=== PATIENT | female | born 1940 | race Caucasian/White ===

== ENCOUNTER → 2020-01-12 | Outpatient (CLI) | payer MEDICARE ==
[~2020-01-12] MED LIST: ALPR0.5T5 PO; APIX5TAB PO; CALC400T5 PO; CARV3.122 PO; CITA20TA6 PO; DAPT500V6 IV; DIPH25TA24 PO; DOCU-131 PO; DOXY100T PO; FAMO10TA77 PO; FERR325T18 PO; FURO20TA3 PO; GABA600T7 PO; GLIP10TA13 PO; HYDR-3241 PO; HYDR-3341 PO; MERO1VIA15 IV; NYST1000 PO; OXYB5TAB10 PO; OXYC5CAP2 PO; POLY17PO5 PO; TRAZ-175 PO
== END | disposition home or self-care (01) ==
LOC: CFH 08:00
PROVIDERS: ATTEND Registered Nurse
DX: N63.22 Unspecified lump in the left breast, upper inner quadrant (principal); N64.89 Other specified disorders of breast; Z85.3 Personal history of malignant neoplasm of breast
CPT/HCPCS: 76642; 77066

== ENCOUNTER 2020-06-12 06:47 | Day surgery (SDC) | payer MEDICARE ==
[~2020-06-12] VITALS: Ht 167.6 cm; Wt 104.0 kg
[~2020-06-12 06:47] MED LIST changes: -MERO1VIA15 IV; +MERO1VIA24 IV
[2020-06-12 07:33] VITALS: BP 149/84
[2020-06-12] MEDS ORDERED: EMPA25TA PO (08:23)
[2020-06-12] MEDS ORDERED: TRAM50TA2 PO (08:23)
[2020-06-12] MEDS ORDERED: NYSTATIN OINT TP (08:23)
[2020-06-12] MEDS ORDERED: POTASSIUM CL PO (08:23)
[2020-06-12] MEDS ORDERED: SODI44SP NS (08:23)
[2020-06-12] MEDS ORDERED: DIGO125T85 PO (08:23)
[2020-06-12] MEDS ORDERED: POTASSIUM CL ER PO (08:23)
[2020-06-12] MEDS ORDERED: INSU100V8 SQ (08:23)
[2020-06-12] MEDS ORDERED: ATOR40TA78 PO (08:23)
[2020-06-12] MEDS ORDERED: OXYB-39 PO (08:23)
[2020-06-12] MEDS ORDERED: FURO20TA3 PO (08:23)
[2020-06-12] MEDS ORDERED: DOXY100C2 PO (08:23)
[2020-06-12] MEDS ORDERED: ACET250T2 PO (08:23)
[2020-06-12] MEDS ORDERED: BENZ-17 PO (08:23)
[2020-06-12] MEDS ORDERED: FENTANYL PF 100 MCG/2ML ONE (08:51)
[2020-06-12] MEDS ORDERED: NALOXONE 1 MG/ML, 2ML ONE (08:52)
[2020-06-12] MEDS ORDERED: FLUMAZENIL 0.1 MG/1 ML, 5ML ONE (08:52)
[2020-06-12] MEDS ORDERED: MIDAZOLAM 1 MG/ML, 5ML ONE (08:52)
== END 2020-06-12 10:48 | disposition home or self-care (01) ==
LOC: OUT 06:47
PROVIDERS: ATTEND Specialist
DX: R93.7 Abnormal findings on diagnostic imaging of other parts of musculoskeletal system (principal); C50.911 Malignant neoplasm of unspecified site of right female breast; I48.91 Unspecified atrial fibrillation; I10 Essential (primary) hypertension; E11.9 Type 2 diabetes mellitus without complications; D68.51 Activated protein C resistance; R62.7 Adult failure to thrive; Z79.4 Long term (current) use of insulin; Z79.891 Long term (current) use of opiate analgesic; Z79.899 Other long term (current) drug therapy; Z85.3 Personal history of malignant neoplasm of breast; Z90.12 Acquired absence of left breast and nipple; Z90.49 Acquired absence of other specified parts of digestive tract; Z90.710 Acquired absence of both cervix and uterus; Z96.653 Presence of artificial knee joint, bilateral; Z98.890 Other specified postprocedural states; Z99.81 Dependence on supplemental oxygen; Z80.1 Family history of malignant neoplasm of trachea, bronchus and lung; Z82.0 Family history of epilepsy and other diseases of the nervous system; Z83.2 Family history of diseases of the blood and blood-forming organs and certain disorders involving the immune mechanism
CPT/HCPCS: 20220; 77012; 88307; 88311; 99156; 99157; J2250; J3010; J2310

== ENCOUNTER → 2021-01-27 | Outpatient (CLI) | payer MEDICARE ==
[~2021-01-27] MED LIST changes: +ACET250T2 PO; +ATOR40TA78 PO; +BENZ-17 PO; +CALC400T33 PO; -CALC400T5 PO; +DIGO125T85 PO; +DOXY100C2 PO; +EMPA25TA PO; +INSU100V8 SQ; +NYSTATIN OINT TP; +OXYB-39 PO; +POTASSIUM CL ER PO; +POTASSIUM CL PO; +SODI44SP NS; +TRAM50TA2 PO
== END | disposition home or self-care (01) ==
LOC: CFH 14:08
PROVIDERS: ATTEND Specialist
DX: C50.812 Malignant neoplasm of overlapping sites of left female breast (principal); M81.0 Age-related osteoporosis without current pathological fracture; D68.51 Activated protein C resistance; M85.89 Other specified disorders of bone density and structure, multiple sites; D64.9 Anemia, unspecified
CPT/HCPCS: 77080

== ENCOUNTER 2021-06-10 12:09 | Outpatient (CLI) | payer MEDICARE ==
[~2021-06-10 12:09] MED LIST changes: -ALPR0.5T5 PO; +ALPR0.5T9 PO; +FAMO-185 PO; -FAMO10TA77 PO
== END 2021-06-10 23:59 | disposition home or self-care (01) ==
LOC: CFH 12:09
PROVIDERS: ATTEND Surgery
DX: Z85.3 Personal history of malignant neoplasm of breast (principal)
CPT/HCPCS: 77061; 77063; 77065; G0279